=== PATIENT | female | born 1950 | race Caucasian/White ===

== ENCOUNTER → 2017-07-29 | Outpatient (CLI) | payer OTHER ==
[~2017-07-29] MED LIST: ACTOS15 MG PO; ALBUTEROL SULF8.5 GM IH; ALLERGY REL1 MG/1 M1 PO; DEPAKOTE ER500 MG PO; DIVALPROEX SOD250 M1 PO; GLIPIZIDE10 MG PO; KETOCONAZOLE60 GM TP; METFORMIN HCL500 MG PO; PANTOPRAZOLE SO40 MG PO; PREDNISONE20 MG PO; TIZANIDINE HCL4 M1 PO; TOPAMAX50 MG PO; VERAPAMIL ER100 MG PO
[2017-07-29 11:10] LABS: POINT-OF-CARE METER ID UU14107333
[2017-07-29 11:13] LABS: CHLORIDE 104 mEq/L (99-109); POTASSIUM 4.1 mEq/L (3.7-5.4); SODIUM 137 mEq/L (136-147)
[2017-07-29 11:14] LABS: GLUCOSE 204 mg/dL (70-99)
[2017-07-29 11:16] LABS: ANION GAP 18 MEQ/L (2-14)
[2017-07-29 11:18] LABS: GFR ESTIMATE (CALCULATED) > 59 mL/min/
[2017-07-29 11:19] LABS: UREA NITROGEN (BUN) 5 mg/dL (9-23)
== END | disposition home or self-care (01) ==
LOC: AMB 10:30
PROVIDERS: Anesthesiology; Internal Medicine Gastroenterology
DX: K22.70 Barrett's esophagus without dysplasia (principal); Z08 Encounter for follow-up examination after completed treatment for malignant neoplasm; D12.4 Benign neoplasm of descending colon; K57.30 Diverticulosis of large intestine without perforation or abscess without bleeding; Z85.038 Personal history of other malignant neoplasm of large intestine; K62.5 Hemorrhage of anus and rectum; R19.7 Diarrhea, unspecified; K64.8 Other hemorrhoids; Z90.49 Acquired absence of other specified parts of digestive tract; K21.9 Gastro-esophageal reflux disease without esophagitis; I10 Essential (primary) hypertension; J45.909 Unspecified asthma, uncomplicated; Z79.84 Long term (current) use of oral hypoglycemic drugs; E11.42 Type 2 diabetes mellitus with diabetic polyneuropathy; Z68.32 Body mass index [BMI] 32.0-32.9, adult; Z80.0 Family history of malignant neoplasm of digestive organs; Z88.6 Allergy status to analgesic agent
CPT/HCPCS: 80048; 82948; 88305